=== PATIENT | male | born 1995 | race Caucasian/White ===

== ENCOUNTER 2017-10-14 19:40 | Emergency (ER) | payer SELFPAY ==
[2017-10-15] MEDS: IBUPROFEN 800 MG TAB PO (01:10)
== END 2017-10-15 01:46 | disposition home or self-care (01) ==
LOC: FTE 19:40
DX: S99.921A Unspecified injury of right foot, initial encounter (principal); S79.911A Unspecified injury of right hip, initial encounter; V00.131A Fall from skateboard, initial encounter; Y92.9 Unspecified place or not applicable
CPT/HCPCS: 73510; 73630; 99284-25